=== PATIENT | female | born 1990 | race Caucasian/White ===

== ENCOUNTER 2024-04-22 15:20 | Observation (INO) ==
--- NOTE | 2024-04-22 15:43 | Emergency Department Note ---
HPI - Arrhythmia/Palpitations General Chief Complaint: Arrhythmia/Palpitations Stated Complaint: ELEVATED HEARTRATE Time Seen by Provider: 04/22/24 15:40 Source: patient and EMS Mode of arrival: ambulance Limitations: no limitations History of Present Illness HPI narrative: This is a 34 year old female patient that presents to the ER with c/o her heart racing. Patient states she has a hx of SVT. Per EMS patients HR on their arrival was 149 and they gave a total of 12mg of Adenosine. Patient denies any chest pain, SOB, back pain, fever, chills, numbness, tingling, weakness or N/V. Patient states she is having an abdominal fullness sensation MD complaint: Reports "heart racing" Onset (ago): hour(s) (2) Duration: Reports constant Context: Reports occurred during rest Arrhythmia history: Reports SVT Associated symptoms: Reports denies other symptoms Treatments prior to arrival: Reports vagal maneuvers and adenosine Related Data Allergies Allergy/AdvReac Type Severity Reaction Status Date / Time No Known Drug Allergies Allergy Verified 04/22/24 15:43 Review of Systems Status of ROS 10 or more systems reviewed and unremark able except as noted in history and below Constitutional Denies: fever, chills, change in weight, fatigue, malaise or night sweats Eyes Denies: change in vision, blurry vision, blind spots or light sensitivity Ears, nose, mouth, and throat Denies: throat pain, neck pain, throat swelling, difficulty swallowing, hoarseness or mouth pain Cardiovascular Denies: chest pain, palpitations, edema, swelling of feet/ankles, lightheadedness or shortness of breath with exertion Respiratory Denies: shortness of breath, cough, wheezing, stridor, pain on inspiration or change in phlegm color Gastrointestinal Reports: abdominal pain; Denies: nausea, vomiting, coffee grounds in vomit, heartburn or diarrhea Genitourinary Denies: painful urination, urinary frequency, urinary urgency, urinary incontinence, blood in urine, pelvic pain or vaginal discharge Musculoskeletal Denies: back pain, neck pain, extremity pain, extremity swelling or joint pain Integumentary/Breast Denies: rash, itching, redness, skin pain, skin tenderness, skin swelling, breast swelling or nipple discharge Neurological Denies: headache, numbness in extremities, weakness in extremities, lack of coordination, dizziness, vertigo or confusion Psychiatric Denies: anxiety, mood swings, panic attacks, change in sleep pattern or hopelessness Endocrine Denies: excessive urination, excessive thirst, fatigue, cold intolerance or excessive sweating Hematologic/Lymphatic Denies: easy bruising, easy bleeding or enlarged lymph nodes Allergic/Immunologic Denies: hives, throat swelling, tongue swelling, facial swelling or wheezing PFSH [facility] Medical History (Updated 04/22/24 @ 15:49 by Ramila Marks RN) SVT (supraventricular tachycardia) delivery delivered Patient denies medical problems Social History Smoking status: current every day smoker Exam Constitutional: normal general appearance and no apparent distress Vital Signs - 24 hr 04/22/24 15:20 Temperature 98.4 F Pulse Rate 95 H Respiratory Rate 16 Blood Pressure 130/84 Pulse Oximetry 99 Oxygen Delivery Me thod Room Air anxious HENMT: normocephalic, head/scalp atraumatic, hearing grossly normal bilaterally, external ears normal, nasal mucous membranes normal, external nose normal, oral mucous membranes normal and oropharynx normal Eyes: PERRL, EOMs intact bilaterally, conjunctivae normal and no scleral icterus Neck/C-Spine: visual inspection normal and trachea midline Lymph: no lymphadenopathy noted Chest: inspection of chest normal Respiratory: breath sounds equal bilaterally, normal respiratory effort, clear to auscultation bilaterally, no wheezes, no rales, no retractions, no use of accessory muscles and chest percussion normal Cardiovascular: normal heart rate noted, regular rhythm noted, no gallop, no rub, no murmur, no JVD, no clicks, peripheral pulses 2+ throughout and no additional abnormal heart sounds Gastrointestinal: abdomen normal to inspection, abdomen soft to palpation, tender to palpation (diffuse) (mild), nontender to percussion, nondistended, normoactive bowel sounds, no hepatosplenomegaly, no masses, no pulsatile mass, no ascites and no hernia Genitourinary: no CVA tenderness Back/Pelvis: spine normal to inspection Extremities: normal to inspection, normal to palpation, no tenderness, full ROM, no joint enlargement and no deformity Neurology: no movement abnormality noted, no focal motor deficit noted, no sensory deficits noted, speech normal, coordination normal, no pronator drift noted, no fasciculations noted and GCS normal Psychiatry: mental status grossly normal, oriented x3, thought process normal, cooperative and affect normal Skin: skin color normal Course Course Hospital Course: 1652: Due to patient having hx of SVT and received Adenosine today for SVT, will admit patient to the hospital for further evaluation and treatment. No s/s of acute distress noted Vital Signs Vital signs: Vital Signs Temperature 98.4 F 04/22/24 15:20 Pulse Rate 95 H 04/22/24 15:20 Respiratory Rate 16 04/22/24 15:20 Blood Pressure 130/84 04/22/24 15:20 Pulse Oximetry 99 04/22/24 15:20 Oxygen Delivery Method Room Air 04/22/24 15:20 Temperature 98.4 F 04/22/24 15:20 Pulse Rate 95 H 04/22/24 15:20 Respiratory Rate 16 04/22/24 15:20 Blood Pressure 130/84 04/22/24 15:20 Pulse Oximetry 99 04/22/24 15:20 Oxygen Delivery Method Room Air 04/22/24 15:20 MDM - Arrhythmia/Palpitations Differential Diagnosis Differential diagnosis: Likely palpitations Medical Records Attestation: I reviewed the patient's medical records. Lab Data Attestation: I reviewed the patient's lab results. Labs: Lab Results 04/22/24 04/22/24 Range/Units 15:25 15:50 WBC 6.8 (4.3-9.3) K/uL RBC 4.3 (4.00-5.50) M/uL Hgb 14.2 (12.5-15.8) gm/dL Hct 41.8 (35.9-46.7) % MCV 97.0 H (81.0-93.7) fl MCH 32.8 H (27.6-32.2) pg MCHC 33.8 (33.1-35.3) g/dl RDW 13.2 (11.4-14.2) % Plt Count 207 (152-353) K/uL MPV 7.7 (6.9-10.8) fl Gran % 73.7 H (47.8-71.3) % Lymph % (Auto) 16.1 L (20.0-43.0) % Mer[place] % (Auto) 9.0 (3.6-9.8) % Eos % (Auto) 0.9 (0.4-2.8) % Baso % (Auto) 0.3 (0.1-0.85) Lymph # (Auto) 1.1 (1.1-3.1) [place] # (Auto) 0.6 L (1.1-3.1) Eos # (Auto) 0.1 (0.0-0.2) Baso # (Auto) 0.0 (0.0-0.1) Absolute Gran (auto) 5.0 (2.3-6.0) D-Dimer 157 (100-600) ng/mL Sodium 137 (136-145) mmol/L Potassium 3.4 L (3.6-5.2) mmol/L Chloride 99.0 (98-107) mmol/L Carbon Dioxide 23 (21-32) mmol/L Anion Gap 15.0 H (4-14) mEq/L BUN 11 (7-18) mg/dL Creatinine 0.9 (0.6-1.3) mg/dL Estimated GFR 86.0 (>59.9) Glucose 82 (70-110) mg/dL Calcium 8.8 (8.5-10.1) mg/dL Total Bilirubin 0.79 (0.0-1.0) mg/dL AST 20 (15-37) U/L ALT 37 (30-65) U/L Alkaline Phosphatase 49 L (50-136) U/L Troponin I High Sens 5.40 (4.0-60.4) ng/L Total Protein 7.3 (6.4-8.2) g/dL Albumin 4.1 (3.4-5.0) g/dL Lipase 47.0 (16.0-77.0) U/L Urine Color Yellow (STRAW/YELL.) Urine Appearance Clear (CLEAR) Ur Specific Kiana 1.010 (1.001-1.035) Urine Protein Negative (NEGATIVE) Urine Glucose (UA) Normal (NORMAL) Urine Ketones Large (NEGATIVE) Urine Occult Blood Negative (NEG - TRACE) Urine Nitrite Negative (NEGATIVE) Urine Bilirubin Negative (NEGATIVE) Urine Urobilinogen Normal (NORMAL) Ur Leukocyte Esterase Negative (NEGATIVE) Urine Test Negative (Negative) Fluid pH 6.0 (5 - 9) Imaging Data Imaging ordered: Chest x-ray Attestation: I have reviewed the pertinent imaging results. ECG Data Attestation: I have reviewed the pertinent ECG results. Discharge Plan Discharge Patient Disposition: Admitted As Observation Condition: Stable Clinical Impression: Supraventricular tachycardia, Anxiety Time of Disposition: 16:56
[2024-04-22] MEDS: 0.9 % SODIUM CHLORIDE 1000 ML 1,000 ML IV STA (15:46)
[2024-04-22 15:58] LABS: Basophils%(Percent) Auto 0.3 (0.1-0.85); Eosinophils#(Absolute)Auto 0.1 (0.0-0.2); Eosinophils%(Percent) Auto 0.9 % (0.4-2.8); Granulocytes % - Auto 73.7 % (47.8-71.3); Hematocrit 41.8 % (35.9-46.7); Monocytes #(Absolute)- Auto 0.6 (1.1-3.1); Platelet Count 207 K/uL (152-353); White Blood Count 6.8 K/uL (4.3-9.3)
[2024-04-22 16:06] LABS: Potassium 3.4 mmol/L (3.6-5.2)
[2024-04-22 16:27] LABS: Urine Appearance CLEAR (CLEAR); Urine Blood NEGATIVE (NEG - TRACE); Urine Color YELLOW (STRAW/YELL.); Urine Urobilinogen Normal (NORMAL)
[2024-04-22] MEDS: POTASSIUM CHLORIDE 20 MEQ TAB.ER.PRT PO ONE (16:50)
[2024-04-22] MEDS ORDERED: POTASSIUM CHLORIDE 20 MEQ TAB.ER.PRT PO ONE (19:07)
[2024-04-22] MEDS ORDERED: bisacodyL 10 MG SUPP.RECT PR PRN (20:32)
[2024-04-22] MEDS ORDERED: ACETAMINOPHEN 500 MG TABLET PO PRN (20:32)
[2024-04-22] MEDS ORDERED: MAGNESIUM, ALUMINUM HYDROXIDE 30 ML ORAL.SUSP PO PRN (20:32)
[2024-04-22] MEDS ORDERED: LORazepam 2 MG/ML VIAL IVP PRN (23:30)
[2024-04-23 04:43] LABS: Basophils%(Percent) Auto 0.6 (0.1-0.85); Eosinophils#(Absolute)Auto 0.1 (0.0-0.2); Granulocytes % - Auto 49.8 % (47.8-71.3); Granulocytes#(Absolute)- Auto 2.7 (2.3-6.0); Hematocrit 40.1 % (35.9-46.7); Mean Corpuscular Volume 98.3 fl (81.0-93.7); Monocytes #(Absolute)- Auto 0.7 (1.1-3.1); Platelet Count 219 K/uL (152-353); White Blood Count 5.4 K/uL (4.3-9.3)
[2024-04-23 05:07] LABS: Potassium 3.7 mmol/L (3.6-5.2)
[2024-04-23 08:21] VITALS: BP 109/70; PULSE 89; RESP 18; TEMP 98.7
[2024-04-23] MEDS: PROPRANOLOL HCL 10 MG TABLET PO ONE (10:57)
--- NOTE | 2024-04-23 13:33 | Short Stay Summary ---
H&P: HPI History of Present Illness Chief complaint: svt, anxiety Narrative: This is a 34 year old female patient that presents to the ER with c/o her heart racing. Patient states she has a hx of SVT. Per EMS patients HR on their arrival was 149 and they gave a total of 12mg of Adenosine. Patient denies any chest pain, SOB, back pain, fever, chills, numbness, tingling, weakness or N/V. Patient states she is having an abdominal fullness sensation. Admitted patient to med/surg floor for further observation and treatment. Review of Systems Status of ROS 10 or more systems reviewed and unremark able except as noted in history and below Constitutional Denies: fever, chills, change in weight, fatigue, malaise or night sweats Eyes Denies: change in vision, blurry vision, blind spots or light sensitivity Ears, nose, mouth, and throat Denies: throat pain, neck pain, throat swelling, difficulty swallowing, hoarseness, mouth pain or vertigo Cardiovascular Denies: chest pain, palpitations, edema, swelling of feet/ankles, lightheadedness or shortness of breath with exertion Respiratory Denies: shortness of breath, cough, wheezing, stridor, pain on inspiration or change in phlegm color Gastrointestinal Reports: abdominal pain; Denies: nausea, vomiting, coffee grounds in vomit, heartburn, diarrhea or difficulty swallowing Genitourinary Denies: painful urination, urinary frequency, urinary urgency, urinary incontinence, blood in urine, pelvic pain or vaginal discharge Musculoskeletal Denies: back pain, neck pain, extremity pain, extremity swelling or joint pain Integumentary/Breast Denies: rash, itching, redness, skin pain, skin tenderness, skin swelling, breast swelling or nipple discharge Neurological Denies: headache, numbness in extremities, weakness in extremities, lack of coordination, dizziness, vertigo or confusion Psychiatric Denies: anxiety, mood swings, panic attacks, change in sleep pat tern or hopelessness Endocrine Denies: excessive urination, excessive thirst, fatigue, cold intolerance or excessive sweating Hematologic/Lymphatic Denies: easy bruising, easy bleeding or enlarged lymph nodes Allergic/Immunologic Denies: hives, throat swelling, tongue swelling, facial swelling or wheezing PFSH [facility] Medical History Anxiety GERD (gastroesophageal reflux disease) SVT (supraventricular tachycardia) delivery delivered Patient denies medical problems Social History Smoking status: current every day smoker Problems where you live: no known problems Highest level of school completed/degree received: high school Gender Identity: female Meds Home Medications and Allergies Home Medications Medication Instructions Recorded Confirmed Type acetaminophen 325 mg tablet 325 mg PO Q6H PRN fever or pain 04/23/24 04/23/24 History alprazolam 0.25 mg tablet 0.25 mg PO BID PRN anxiety 04/23/24 04/23/24 History cefdinir 300 mg capsule 300 mg PO BID 04/23/24 04/23/24 History ergocalciferol (vitamin D2) 1,000 1,000 unit PO DAILY 04/23/24 04/23/24 History unit capsule famotidine 40 mg tablet (Pepcid) 40 mg PO BID gerd #20 tabs 04/23/24 Rx fluoxetine 10 mg capsule 10 mg PO DAILY 04/23/24 04/23/24 History fluticasone propionate 50 1 spray intranasal BID PRN allergy 04/23/24 04/23/24 History mcg/actuation nasal symptoms spray,suspension hydroxyzine HCl 25 mg tablet 25 mg PO .QHS PRN anxiety 04/23/24 04/23/24 History magnesium 100 mg capsule 100 mg PO DAILY 04/23/24 04/23/24 History medroxyprogesterone 150 mg/mL 150 mg IM [id number] 04/23/24 04/23/24 History intramuscular suspension metoprolol succinate 25 mg 12.5 mg PO QDAY 04/23/24 04/23/24 History tablet,extended release 24 hr propranolol 10 mg tablet 10 mg PO BID tachycardia #60 tabs 04/23/24 Rx tyrosine (bulk) ea miscellaneous 04/23/24 History Allergies Allergy/AdvReac Type Severity Reaction Status Date / Time No Known Drug Allergies Allergy Verified 04/22/24 15:43 Exam Exam: Patient in foster's position upon entering room for exam. Constitutional: normal general appearance and no apparent distress Vital Signs - 24 hr 04/22/24 15:20 04/22/24 16:00 04/22/24 17:00 Temperature 98.4 F Pulse Rate 95 H 99 H 100 H Pulse Rate [Apical ] Respiratory Rate 16 16 16 Blood Pressure 130/84 104/72 110/66 Blood Pressure [Ri ght Arm] Pulse Oximetry 99 99 98 Oxygen Delivery Me thod Room Air 04/22/24 18:00 04/22/24 19:00 04/22/24 20:00 Temperature Pulse Rate 92 H 94 H 89 Pulse Rate [Apical ] Respiratory Rate 16 18 18 Blood Pressure 99/65 106/50 102/64 Blood Pressure [Ri ght Arm] Pulse Oximetry 99 99 [facility] 04/22/24 20:15 04/22/24 20:47 04/22/24 20:47 Temperature 97.7 F 98.6 F Pulse Rate 84 Pulse Rate [Apical ] Respiratory Rate 17 16 Blood Pressure 102/61 Blood Pressure [Ri ght Arm] 109/71 Pulse Oximetry 99 98 [facility] Room [facility] 04/22/24 21:00 04/23/24 00:00 04/23/24 04:00 Temperature 98.6 F 98.6 F 97.9 F Pulse Rate Pulse Rate [Apical ] 80 83 78 Respiratory Rate 16 16 16 Blood Pressure Blood Pressure [Ri ght Arm] 109/71 106/67 103/71 Pulse Oximetry 98 98 98 [facility] Room Air Room Air 04/23/24 08:00 04/23/24 10:57 Temperature 98.7 F Pulse Rate Pulse Rate [Apical ] 89 Respiratory Rate 18 Blood Pressure 109/70 Blood Pressure [Ri ght Arm] 109/70 Pulse Oximetry 100 [facility] HENMT: normocephalic, head/scalp atraumatic, hearing grossly normal bilaterally, external ears normal, nasal mucous membranes normal, external nose normal, oral mucous membranes normal and oropharynx normal Eyes: PERRL, EOMs intact bilaterally, conjunctivae normal and no scleral icterus Neck/C-Spine: visual inspection normal and trachea midline Lymph: no lymphadenopathy noted Chest: inspection of chest normal Respiratory: breath sounds equal bilaterally, normal respiratory effort, clear to auscultation bilaterally, no wheezes, no rales, no retractions, no use of accessory muscles and chest percussion normal Cardiovascular: normal heart rate noted, regular rhythm noted, no gallop, no rub, no murmur, no JVD, no clicks, peripheral pulses 2+ throughout and no additional abnormal heart sounds Gastrointestinal: abdomen normal to inspection, abdomen soft to palpation, nontender to palpation, nontender to percussion, nondistended, normoactive bowel sounds, no hepatosplenomegaly, no masses, no pulsatile mass, no ascites and no hernia Genitourinary: no CVA tenderness Back/Pelvis: spine normal to inspection Extremities: normal to inspection, normal to palpation, no tenderness, full ROM, no joint enlargement and no deformity Neurology: no movement abnormality noted, no focal motor deficit noted, no sensory deficits noted, speech normal, coordination normal, no pronator drift noted, no fasciculations noted and GCS normal Psychiatry: mental status grossly normal, oriented x3, thought process normal, cooperative and affect normal Skin: skin color normal Assessment and Plan Assessment and Plan (1) SVT (supraventricular tachycardia): Code(s): I47.10 - Supraventricular tachycardia, unspecified (2) Anxiety: Code(s): F41.9 - Anxiety disorder, unspecified (3) Sinus tachycardia by electrocardiogram: Code(s): R00.0 - Tachycardia, unspecified (4) GERD (gastroesophageal reflux disease): Qualifiers: Esophagitis presence: without esophagitis Qualified Code(s): K21.9 - Gastro-esophageal reflux disease without esophagitis Code(s): K21.9 - Gastro-esophageal reflux disease without esophagitis Plan Discharge patient home for self care. Results Labs Labs: CBC WBC 5.4 K/uL (4.3-9.3) 04/23/24 03:55 RBC 4.1 M/uL (4.00-5.50) 04/23/24 03:55 Hgb 13.5 gm/dL (12.5-15.8) 04/23/24 03:55 Hct 40.1 % (35.9-46.7) 04/23/24 03:55 MCV 98.3 fl (81.0-93.7) H 04/23/24 03:55 MCH 33.0 pg (27.6-32.2) H 04/23/24 03:55 MCHC 33.5 g/dl (33.1-35.3) 04/23/24 03:55 RDW 13.2 % (11.4-14.2) 04/23/24 03:55 Plt Count 219 K/uL (152-353) 04/23/24 03:55 MPV 8.2 fl (6.9-10.8) 04/23/24 03:55 Gran % 49.8 % (47.8-71.3) 04/23/24 03:55 Lymph % (Auto) 34.6 % (20.0-43.0) 04/23/24 03:55 Jack % (Auto) 13.0 % (3.6-9.8) H 04/23/24 03:55 Eos % (Auto) 2.0 % (0.4-2.8) 04/23/24 03:55 Baso % (Auto) 0.6 (0.1-0.85) 04/23/24 03:55 Lymph # (Auto) 1.9 (1.1-3.1) 04/23/24 03:55 Jack # (Auto) 0.7 (1.1-3.1) L 04/23/24 03:55 Eos # (Auto) 0.1 (0.0-0.2) 04/23/24 03:55 Baso # (Auto) 0.0 (0.0-0.1) 04/23/24 03:55 Absolute Gran (auto) 2.7 (2.3-6.0) 04/23/24 03:55 BMP Sodium 138 mmol/L (136-145) 04/23/24 03:55 Potassium 3.7 mmol/L (3.6-5.2) 04/23/24 03:55 Chloride 103.0 mmol/L (98-107) 04/23/24 03:55 Carbon Dioxide 26 mmol/L (21-32) 04/23/24 03:55 Anion Gap 9.0 mEq/L (4-14) 04/23/24 03:55 BUN 12 mg/dL (7-18) 04/23/24 03:55 Creatinine 0.9 mg/dL (0.6-1.3) 04/23/24 03:55 Estimated GFR 86.0 (>59.9) 04/23/24 03:55 Glucose 71 mg/dL (70-110) 04/23/24 03:55 Calcium 8.8 mg/dL (8.5-10.1) 04/23/24 03:55 Phosphorus 4.4 mg/dL (2.5-4.9) 04/23/24 05:00 Magnesium 2.1 mg/dL (1.8-2.4) 04/23/24 05:00 Total Bilirubin 0.57 mg/dL (0.0-1.0) 04/23/24 03:55 AST 22 U/L (15-37) 04/23/24 03:55 ALT 41 U/L (30-65) 04/23/24 03:55 Alkaline Phosphatase 45 U/L (50-136) L 04/23/24 03:55 Total Protein 6.5 g/dL (6.4-8.2) 04/23/24 03:55 Albumin 3.5 g/dL (3.4-5.0) 04/23/24 03:55 Cardiac Enzymes Troponin I High Sens 5.40 ng/L (4.0-60.4) 04/22/24 15:50 Liver Function Total Bilirubin 0.57 mg/dL (0.0-1.0) 04/23/24 03:55 AST 22 U/L (15-37) 04/23/24 03:55 ALT 41 U/L (30-65) 04/23/24 03:55 Alkaline Phosphatase 45 U/L (50-136) L 04/23/24 03:55 Total Protein 6.5 g/dL (6.4-8.2) 04/23/24 03:55 Albumin 3.5 g/dL (3.4-5.0) 04/23/24 03:55 Urine Urine Color Yellow (STRAW/YELL.) 04/22/24 15:25 Urine Appearance Clear (CLEAR) 04/22/24 15:25 Ur Specific [place] 1.010 (1.001-1.035) 04/22/24 15:25 Urine Protein Negative (NEGATIVE) 04/22/24 15:25 Urine Glucose (UA) Normal (NORMAL) 04/22/24 15:25 Urine Ketones Large (NEGATIVE) 04/22/24 15:25 Urine Occult Blood Negative (NEG - TRACE) 04/22/24 15:25 Urine Nitrite Negative (NEGATIVE) 04/22/24 15:25 Urine Bilirubin Negative (NEGATIVE) 04/22/24 15:25 Urine Urobilinogen Normal (NORMAL) 04/22/24 15:25 Ur Leukocyte Esterase Negative (NEGATIVE) 04/22/24 15:25 Imaging Imaging ordered: Chest x-ray and CT scan - abdomen Radiologist's impression: XR CHEST 1V Date of Service: 04/22/24 HISTORY: ELEVATED HEART RATE; CV/OT COMPARISON: March 10 TECHNIQUE: Chest radiograph PA single-view FINDINGS: Heart size and mediastinal contours are normal. Lungs are clear as are the pleural spaces. No free air or pneumothorax. No acute bony abnormality. IMPRESSION: No acute radiographic abnormalities of the chest CT ABDOMEN PELVIS WO CON Date of Service: 04/22/24 HISTORY: ELEVATED HEARTRAT, ABDOMINAL PAIN; CV COMPARISON: None. TECHNIQUE: Nonenhanced spiral CT imaging was performed through the abdomen and pelvis and axial, coronal, and sagittal CT images were generated. FINDINGS: The lung bases are clear without effusion. Heart size is normal. The liver, gallbladder, pancreas, spleen, adrenal glands are normal. Both kidneys are normal in size. There are nonobstructing stones in both kidneys. The largest stone on the right side measures 5 mm and the largest on the left side measures 3 mm. There is no hydronephrosis or ureteral stone on either side. The urinary bladder is normal. The uterus is normal and there is no adnexal mass. The stomach is normal. There are some air-fluid levels in the small bowel but the loops are not abnormally dilated. There is no small bowel wall thickening. The appendix is normal. The large bowel loops are unremarkable. There are no worrisome bone marrow lesions. IMPRESSION: Bilateral nonobstructing renal stones but no hydronephrosis or hydroureter DS: Providers Provider Date of admission: 04/22/24 17:52 Primary care physician: Araceli Gandhi Admitting clinician: Areli Ramirez Attending physician on admission: Kat Maza Attending physician on discharge: Kat Maza Discharging clinician: Kat Maza Anticipated date of discharge: 04/23/24 DS: Summary Hospital Course Hospital Course: This is a 34 year old female patient that presents to the ER with c/o her heart racing. Patient states she has a hx of SVT. Per EMS patients HR on their arrival was 149 and they gave a total of 12mg of Adenosine. Patient denies any chest pain, SOB, back pain, fever, chills, numbness, tingling, weakness or N/V. Patient states she is having an abdominal fullness sensation. Admitted patient to med/surg floor for further observation and treatment. Day one of hospital stay, patient chest pain has resolved. She was recently on a cardiac halter monitor, it was just returned yesterday per patient. 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 Patient is ready to discharge home for self care. Provider recommends a follow up appointment with Cardiology as soon as possible and follow up with PCP in 5-7 days of discharge. Status at Discharge Functional status at discharge: independent ambulation Overall status at discharge: patient is back to baseline Time Spent with Patient Time attestation: Total time spent providing and/or coordinating discharge services: Time spent: greater than 30 minutes Discharge Plan Discharge Disposition: Home, Self-Care Condition: Improved Discharge Medications: New propranolol 10 mg tablet 10 mg PO BID Qty: 60 0RF famotidine [Pepcid] 40 mg tablet 40 mg PO BID Qty: 20 0RF No Action alprazolam 0.25 mg tablet 0.25 mg PO BID PRN (Reason: anxiety) Patient Comments: TAKE ONE TABLET BY MOUTH TWICE DAILY NEEDED Rx Instructions: TAKE ONE TABLET BY MOUTH TWICE DAILY NEEDED cefdinir 300 mg capsule 300 mg PO BID Patient Comments: PT STATES MISSING 2 DOSES SINCE ADMISSION Rx Instructions: TAKE ONE CAPSULE BY MOUTH TWICE DAILY FOR 21 DAYS fluticasone propionate 50 mcg/actuation spray,suspension 1 spray INTRANASAL BID PRN (Reason: allergy symptoms) Rx Instructions: INSTILL ONE SPRAY IN EACH NOSTRIL TWICE DAILY hydroxyzine HCl 25 mg tablet 25 mg PO .QHS PRN (Reason: anxiety) Patient Comments: PT STATES SHE TAKES THIS MOST NIGHTS Rx Instructions: TAKE ONE TABLET BY MOUTH AT BEDTIME NEEDED medroxyprogesterone 150 mg/mL suspension 150 mg IM [id number] Rx Instructions: INJECT 1ml INTRAMUSCULARLY EVERY THREE MONTHS metoprolol succinate 25 mg tablet extended release 24 hr 12.5 mg PO QDAY Patient Comments: PT STATES TAKING THIS NEEDED Rx Instructions: TAKE 1/2 TABLET BY MOUTH DAILY fluoxetine 10 mg capsule 10 mg PO DAILY Patient Comments: PT STATES THIS IS NEW AND SHE HAS NOT STARTED IT YET Rx Instructions: TAKE ONE CAPSULE BY MOUTH ONCE DAILY acetaminophen 325 mg tablet 325 mg PO Q6H PRN (Reason: fever or pain) Patient Comments: OTC tyrosine (bulk) Powder miscellaneous Patient Comments: OTC SUPPLEMENT PT MIXES INTO LIQUID FORM TO DRINK magnesium 100 mg capsule 100 mg PO DAILY Patient Comments: OTC SUPPLEMENT ergocalciferol (vitamin D2) 1,000 unit capsule 1,000 unit PO DAILY Patient Comments: PT STATED TAKING 500-1000 UNITS BUT COULDN'T REMEMBER EXACTLY Discharge Orders: Discharge Order (Routine); Ordered 04/23/24 Ordered By: Kat Maza Activity: increase activity as tolerated Diet: advance to your usual diet Diet Detail: increase water intake and avoid caffeine Interventions: Discharge Assessment Last Done: 04/23/24 11:13 MED/SURG & ICU Observation Charge Sheet Last Done: 04/23/24 06:30 Patient Instructions: Supraventricular Tachycardia (GEN) Activity Restrictions/Additional Instructions: follow up Dr Colby for Holter monitor results and further treatment outside of the reflux medication and the propanol started today follow up PCP on Friday or Friday as available and if any concerns or recurrance before than can return to the ER at anytime. increase water intake and avoid caffeine stop metoprolol since makes patient feel so bad that she often stops the medication and nurse to reeducate on [employer] and rebound tachycardia if stopped or missing doses Forms: Portal/Health Info Access Inst Follow-Ups: Araceli Gandhi [Primary Care Provider] - Discharge Date/Time: 04/23/24 11:23
== END 2024-04-23 11:23 | disposition home or self-care (01) ==
LOC: ED 15:20 → MS 15:20
PROVIDERS: ADMIT Family Medicine; ATTEND Family Medicine